=== PATIENT | male | born 1960 | race Caucasian/White ===

== ENCOUNTER 2019-08-29 09:29 | Emergency (ER) | payer BC ==
[~2019-08-29] VITALS: Ht 182.9 cm; Wt 89.6 kg
[2019-08-29 09:32] VITALS: BP 144/105
[2019-08-29] MEDS ORDERED: HYDROcodone/APAP 5/325 TABLET ONE (10:30)
[2019-08-29] MEDS ORDERED: METHOCARBAMOL 750 MG TABLET ONE (10:30)
[2019-08-29] MEDS ORDERED: METHOCARBAMOL 750 MG TABLET PO ONE (10:30)
[2019-08-29] MEDS ORDERED: HYDROcodone/APAP 5/325 TABLET PO ONE (10:30)
== END 2019-08-29 11:34 | disposition home or self-care (01) ==
LOC: ED 10:45
DX: M54.32 Sciatica, left side (principal)
CPT/HCPCS: 99284; J7512

== ENCOUNTER → 2020-07-05 | Outpatient (CLI) | payer BC ==
[~2020-07-05] MED LIST: TRAV5DRO EACHEYE
[2020-07-05 11:31] LABS: BASOPHILS % (AUTO) 1 % (0-1); EOSINOPHILS % (AUTO) 1 % (1-7); LYMPHOCYTES % (AUTO) 23 % (22-44); MD NO; MEAN CORPUSCULAR HEMOGLOBIN 31.2 pg (27.5-34.5); MEAN CORPUSCULAR HGB CONC 32.8 g/dL (33.2-36.2); MEAN PLATELET VOLUME 7.6 fL (7.4-10.4); MONOCYTES % (AUTO) 11 % (2-9); NEUTROPHILS % (AUTO) 64 % (42-75); PLATELET COUNT 278 x10^3/uL (130-400); RED CELL DISTRIBUTION WIDTH 14.8 % (9.4-14.8)
[2020-07-05 11:40] LABS: ANION GAP 4 mmol/L (5-15); CALCIUM 9.3 mg/dL (8.5-10.1); CHLORIDE 105 mmol/L (98-107); CREATININE 0.69 mg/dL (0.7-1.3); INTERNATIONAL NORMALIZED RATIO 1.01 (0.93-1.1); PROTHROMBIN TIME 10.4 Seconds (9.6-11.5)
[2020-07-05 12:35] LABS: MICROSCOPIC NOT IND
[2020-07-05 12:40] LABS: AMPHETAMINE SCREEN, URINE Negative (Negative); BARBITURATE SCREEN, URINE Negative (Negative); BENZODIAZEPINE SCREEN, URINE Negative (Negative); CANNABINOID SCREEN, URINE Positive (Negative); COCAINE SCREEN, URINE Negative (Negative); METHADONE SCREEN, URINE Negative (Negative); OPIATE SCREEN, URINE Negative (Negative)
== END | disposition home or self-care (01) ==
LOC: STAR 10:25
PROVIDERS: ATTEND Neurological Surgery
DX: Z01.818 Encounter for other preprocedural examination (principal); Z01.812 Encounter for preprocedural laboratory examination; Z01.811 Encounter for preprocedural respiratory examination; R82.90 Unspecified abnormal findings in urine; S33.120A Subluxation of L2/L3 lumbar vertebra, initial encounter; R94.31 Abnormal electrocardiogram [ECG] [EKG]; R79.1 Abnormal coagulation profile; M48.061 Spinal stenosis, lumbar region without neurogenic claudication; J98.4 Other disorders of lung; I44.4 Left anterior fascicular block; M48.07 Spinal stenosis, lumbosacral region; X58.XXXA Exposure to other specified factors, initial encounter; Y93.89 Activity, other specified; Y92.89 Other specified places as the place of occurrence of the external cause; Y99.8 Other external cause status
CPT/HCPCS: 36415; 71046; 72110; 80048; 80307; 81003; 85025; 85610; 85730; 93005

== ENCOUNTER → 2020-07-17 | Outpatient (CLI) | payer BC | END | disposition home or self-care (01) | LOC: STAR 08:38 | PROVIDERS: ATTEND Anesthesiology | DX: Z01.812 Encounter for preprocedural laboratory examination (principal); Z20.828 Contact with and (suspected) exposure to other viral communicable diseases | CPT/HCPCS: 36415; 87635 ==

== ENCOUNTER 2020-07-21 06:47 | Inpatient (IN) | payer BC ==
[~2020-07-21] VITALS: Ht 182.9 cm; Wt 87.0 kg
[~2020-07-21 06:47] MED LIST changes: +BACITRACIN 50,000 UNIT ONE; +BUPIVACAINE 0.25% ONE; +BUPIVACAINE/PF 0.5% ONE; +EPINEPHRINE 1 MG/ML, 1ML ONE; +VANCOMYCIN 1,000 MG ONE
[2020-07-21] MEDS ORDERED: LACTATED RINGERS 1,000 ML IV ONE (07:15)
[2020-07-21] MEDS ORDERED: CHLORHEXIDINE 15 ML UDC MM STA (07:15)
[2020-07-21 07:32] LABS: AMPHETAMINE SCREEN, URINE Negative (Negative); BARBITURATE SCREEN, URINE Negative (Negative); BENZODIAZEPINE SCREEN, URINE Negative (Negative); CANNABINOID SCREEN, URINE Positive (Negative); COCAINE SCREEN, URINE Negative (Negative); METHADONE SCREEN, URINE Negative (Negative); OPIATE SCREEN, URINE Negative (Negative)
[2020-07-21] MEDS ORDERED: MIDAZOLAM 1 MG/ML, 2ML ONE (08:14)
[2020-07-21] MEDS ORDERED: FENTANYL PF 250 MCG/5ML ONE (08:15)
[2020-07-21] MEDS ORDERED: ROCURONIUM 10 MG/ML,10ML ONE (09:25)
[2020-07-21] MEDS ORDERED: DEXAMETHASONE 4 MG/ML, 1ML ONE (09:25)
[2020-07-21] MEDS ORDERED: SUCCINYLCHOLINE 20 MG/ML, 10ML ONE (09:25)
[2020-07-21] MEDS ORDERED: CEFAZOLIN 1,000 MG ONE (09:25)
[2020-07-21] MEDS ORDERED: PROPOFOL 10 MG/ML, 20ML ONE (09:25)
[2020-07-21] MEDS ORDERED: ONDANSETRON 2MG/ML, 2ML ONE (09:25)
[2020-07-21] MEDS ORDERED: VANCOMYCIN 1,000 MG IM ONE (10:13)
[2020-07-21] MEDS ORDERED: MEPERIDINE/PF 25MG/0.5ML IVPush PRN (10:30)
[2020-07-21] MEDS ORDERED: KETOROLAC 30 MG/1 ML IV PRN (10:30)
[2020-07-21] MEDS ORDERED: hydrALAzine 20 MG/ML, 1ML IV PRN (10:30)
[2020-07-21] MEDS ORDERED: PROMETHAZINE 25 MG/ML, 1ML IV PRN (10:30)
[2020-07-21] MEDS ORDERED: LABETALOL 5MG/ML, 20ML IV PRN (10:30)
[2020-07-21] MEDS ORDERED: ALBUTEROL SULFATE 2.5 MG/3 ML NPPB PRN (10:30)
[2020-07-21] MEDS ORDERED: OXYcodone 5 MG/5 ML ORAL.SOL UDC PO PRN (10:30)
[2020-07-21] MEDS ORDERED: ONDANSETRON 2MG/ML, 2ML IVPush PRN ×2 (10:30→12:00)
[2020-07-21] MEDS ORDERED: HYDROmorphone 1 MG/ML, 1ML INJ IV PRN (10:30)
[2020-07-21] MEDS ORDERED: FENTANYL PF 100 MCG/2ML IV PRN (10:30)
[2020-07-21] MEDS ORDERED: DIAZEPAM 5 MG/ML, 2ML IV PRN ×2 (10:30)
[2020-07-21] MEDS ORDERED: METOCLOPRAMIDE 5 MG/ML, 2ML IV PRN (10:30)
[2020-07-21] MEDS ORDERED: FENTANYL PF 100 MCG/2ML ONE ×2 (10:34→11:56)
[2020-07-21] MEDS ORDERED: BUPIVACAINE/PF 0.25% EPIDPUSH ONE (10:36)
[2020-07-21] MEDS ORDERED: OXYcodone 5 MG/5 ML ORAL.SOL UDC ONE (11:56)
[2020-07-21] MEDS ORDERED: KETOROLAC 30 MG/1 ML ONE (11:57)
[2020-07-21] MEDS ORDERED: PROMETHAZINE 25 MG/ML, 1ML IM PRN (12:00)
[2020-07-21] MEDS ORDERED: MORPHINE SULFATE 4 MG/ML, 1ML IVPush PRN (12:00)
[2020-07-21] MEDS ORDERED: SENNA/DOCUSATE TABLET PO PRN (12:00)
[2020-07-21] MEDS ORDERED: OXYcodone/APAP 5/325MG TABLET PO PRN (12:00)
[2020-07-21] MEDS ORDERED: MAGNESIUM HYDROXIDE 8%, 30ML UDC PO PRN (12:00)
[2020-07-21] MEDS ORDERED: PHARMACY MAY ADJ FOR RENAL FX MC PRN (12:00)
[2020-07-21] MEDS ORDERED: DIPHENHYDRAMINE 50 MG/ML, 1ML IVPush PRN (12:00)
[2020-07-21 12:35] VITALS: BP 132/95
[2020-07-21] MEDS: HYDROcodone/APAP 5/325 TABLET PO PRN (15:31)
[2020-07-21] MEDS: D5%-0.9% NACL+KCL 20MEQ 1,000 ML IV SCH (16:27)
[2020-07-21] MEDS: CEFAZOLIN PMX 1GM/50ML 50 ML IVPB SCH (18:44)
[2020-07-21] MEDS: HYDROcodone/APAP 10/325 MG TABLET PO PRN (19:50)
[2020-07-21 20:42] VITALS: BP 146/76
[2020-07-21] MEDS: SODIUM CHLORIDE FLUSH 10ML SYR IVF SCH (21:00)
[2020-07-21] MEDS: METHOCARBAMOL 750 MG TABLET PO PRN (21:12)
[2020-07-22 00:30] VITALS: BP 142/93
[2020-07-22] MEDS: HYDROcodone/APAP 10/325 MG TABLET PO PRN ×5 (00:31→20:38)
[2020-07-22] MEDS: D5%-0.9% NACL+KCL 20MEQ 1,000 ML IV SCH ×2 (01:20→14:40)
[2020-07-22] MEDS: CEFAZOLIN PMX 1GM/50ML 50 ML IVPB SCH (02:44)
[2020-07-22 03:55] VITALS: BP 120/80
[2020-07-22] MEDS: METHOCARBAMOL 750 MG TABLET PO PRN ×3 (05:23→23:10)
[2020-07-22 07:25] VITALS: BP 154/74
[2020-07-22] MEDS: SODIUM CHLORIDE FLUSH 10ML SYR IVF SCH ×2 (08:39→20:38)
[2020-07-22] MEDS: TRAVOPROST OPHTH 0.004%, 2.5ML EACHEYE SCH (08:39)
[2020-07-22 12:55] VITALS: BP 141/96
[2020-07-22] MEDS: HYDROcodone/APAP 5/325 TABLET PO PRN (16:36)
[2020-07-22 19:29] VITALS: BP 113/82
[2020-07-23] MEDS: HYDROcodone/APAP 10/325 MG TABLET PO PRN ×3 (00:21→08:41)
[2020-07-23 01:45] VITALS: BP 112/71
[2020-07-23] MEDS: D5%-0.9% NACL+KCL 20MEQ 1,000 ML IV SCH (04:00)
[2020-07-23 07:45] VITALS: BP 142/75
[2020-07-23] MEDS ORDERED: HYDR-3246 PO (08:39)
[2020-07-23] MEDS ORDERED: METH750T87 PO (08:40)
[2020-07-23] MEDS: METHOCARBAMOL 750 MG TABLET PO PRN (08:41)
[2020-07-23] MEDS: SODIUM CHLORIDE FLUSH 10ML SYR IVF SCH (08:44)
[2020-07-23] MEDS: TRAVOPROST OPHTH 0.004%, 2.5ML EACHEYE SCH (08:44)
== END 2020-07-23 09:32 | disposition home or self-care (01) | DRG 520 ==
LOC: OUT 06:47 → 3N 11:38 → 4NE 12:50 → DCLOUNGE 07-23 09:27
PROVIDERS: ADMIT Neurological Surgery; ATTEND Neurological Surgery
PROC: 0SB20ZZ Excision of Lumbar Vertebral Disc, Open Approach (ICD-10-PCS; 2020-07-21)
PROC: 01NR0ZZ Release Sacral Nerve, Open Approach (ICD-10-PCS; 2020-07-21)
PROC: 4A11X4G Monitoring of Peripheral Nervous Electrical Activity, Intraoperative, External Approach (ICD-10-PCS; 2020-07-21)
PROC: 01NB0ZZ Release Lumbar Nerve, Open Approach (ICD-10-PCS; principal; 2020-07-21 09:30)
DX: M48.062 Spinal stenosis, lumbar region with neurogenic claudication (principal); M51.17 Intervertebral disc disorders with radiculopathy, lumbosacral region; M21.372 Foot drop, left foot; Z88.0 Allergy status to penicillin; Z88.1 Allergy status to other antibiotic agents
CPT/HCPCS: 72100; S0020; 80307; 95938; 95941; G0378; J0171; J0690; J1100; J1885; J2250; J2405; J2704; J3010; J3370; J0330; J3480; J7120